=== PATIENT | male | born 2000 | race Two or more races ===

== ENCOUNTER 2018-09-15 23:31 | Outpatient (CLI) | payer OTHER | END 2018-09-15 23:32 | disposition EMS.NT | LOC: EMS 23:31 | PROVIDERS: ATTEND Surgery | DX: R42 Dizziness and giddiness (principal); R11.0 Nausea ==

== ENCOUNTER 2018-12-26 19:59 | Emergency (ER) | payer OTHER ==
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
[2018-12-26] MEDS ORDERED: CYCLOBENZAPRINE 10 MG TABLET PO STA (21:55)
[2018-12-26] MEDS ORDERED: ACETAMINOPHEN 325 MG TABLET PO STA (21:55)
[2018-12-26] MEDS ORDERED: IBUPROFEN 600 MG TABLET PO STA (21:55)
[2018-12-26 22:21] VITALS: BP 121/69
== END 2018-12-26 22:21 | disposition home or self-care (01) ==
LOC: ED 19:59
DX: M54.5 Low back pain (principal); M54.6 Pain in thoracic spine
CPT/HCPCS: 99284; A9270

== ENCOUNTER 2019-06-20 08:53 | Outpatient (CLI) | payer OTHER ==
[2019-06-20] MEDS ORDERED: GADOBUTROL 15 MMOL/15 ML VIAL ONE (09:39)
== END 2019-06-20 08:54 | disposition home or self-care (01) ==
LOC: DI 08:53
PROVIDERS: ATTEND Orthopaedic Surgery
DX: Z53.9 Procedure and treatment not carried out, unspecified reason (principal)

== ENCOUNTER 2020-10-25 08:14 | Outpatient (CLI) | payer OTHER ==
[2020-10-25 09:09] VITALS: BP 117/82
--- NOTE | 2020-10-25 09:09 | SLEEP CARE CONSULTATION ---
Information from patient questionnaire entered by Stephany Campoverde. I have reviewed and concur with the information entered by Stephany Campoverde. This document represents the service I personally performed and the decisions made by me, Arleth Piper ARNP. History of Present Illness Service Date and Time: 10/25/2020 0814 Reason for Visit: New patient Chief Complaint: reports: Unrefreshed sleep, Snoring, Excessive daytime sleepiness, Observed pauses in breathing, Fatigue, Other (gasping in sleep) Date of Onset: 2 years plus Usual bedtime: 10:30 pm Time it takes to fall asleep: 30-40 minutes Snores at night: Yes Observed to quit breathing while asleep: Yes Sleeps alone due to snoring: No Number of times waking at night: 0 Reasons for waking at night: reports: Choking (with acid taste in throat), Bathroom, Other (unknown reasons). denies: Gasping for air Toss, Turn, or Twitch while sleeping: Yes Recalls having dreams: Yes Usually gets out of bed at: 5:30 - 6:30 am Feels refreshed in the morning: No Morning headache: Yes (resolve after caffeine intake) Sleepy or fatigued during the day: Yes Ever fallen asleep while driving: No (does have drowsy driving at night) Takes day naps: No Dreams during day naps: Yes Prior sleep studies: No Additional HPI information: I had the pleasure of seeing MARC COREY today regarding the possibility of him having a sleep disorder. His current complaints are excessive daytime sleepiness, fatigue, observed pauses in breathing, snoring and unrefreshed sleep. He has a history of migraines. He has them 2-3 times a month and they can last on average 1-5 days. His PCP referred him for evaluation due to the headaches and because he snores loudly. He is very tired in the first half of day and his has told him he snores and has pauses in breathing during sleep. She has seen him gasping for air too. He does not wake up feeling rested. He will wake up for no apparent reason and has woke up choking with acid taste in throat. He feels he gets his best sleep between 4-6 AM. He avoids taking naps but wishes he could. His parents both snore and he states his father should be evaluated because he stops breathing when sleeping. 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 Patient is and lives in [place]. Have you smoked in the past 12 months: No Cigarettes per day (20/pack): 0 (vape) Years of smokin Smoking Pack Years: 0 Alcohol use: Yes Alcohol amount and frequency: 1-3 drinks 2-3 times a month Caffeine use: Yes Caffeine amount and frequency: 200 - 300 mg daily Family History Family history of sleep disordered breathing: Yes Family Hx Sleep Apnea: Mother: Snoring, Father: Snoring, Sleep apnea - Untreated Allergies and Home Medications Drug allergies reviewed: Yes (NKDA) Home medication list reviewed: Yes Allergy and home medication list: Methotrexate Sulfasalazine Cimetidine Humira, every other week Review of Systems Weight gain over past 5 years: 150 Cardiovascular: reports: leg or foot swelling Gastrointestinal: reports: heartburn, difficulty swallowing Neurological: reports: headaches Psychiatric: reports: Attention Deficit Hyperactivity, anxiety, depression Ear/Nose/Throat: reports: nasal congestion, nose bleeds, wisdom teeth removed. denies: injury to nose, tonsillectomy Endocrine: reports: sluggishness, too hot or cold, increased appetite. denies: thyroid disease Musculoskeletal: reports: joint pain, neck pain, back pain, joint swelling, muscle pain or cramping, mobility problems Immunologic: reports: sneezing, rash, itching, allergies to food or environment (seasonal allergies) Physical Exam Blood Pressure: 117/82 Cuff size: wrist Heart Rate: 83 O2 Saturation: 98 Height: 5 ft 6 in Weight: 242 lb Body Mass Index: 39.0 BMI Classification: Obese Neck circumference: 16.75 (inches) Nostrils: patent to airflow Mouth and throat: narrow oropharynx Soft palate: long Hard palate: normal Uvula: normal Uvula visualization: 50% Mallampati Class II Tongue: normal in size Tonsils: 2+ Heart: regular rate and rhythm Lungs: clear bilaterally Impression and Plan 1. Suspected Obstructive Sleep Apnea-Hypopnea Syndrome, as suggested by a history of loud and irregular snoring, observed cessation of breath while a sleep, gasping or choking in sleep, morning headache, unrefreshed sleep, cognitive impairment, and excessive daytime sleepiness. Narrow oropharynx and obesity are common predisposing factors for obstructive sleep apnea-hypopnea syndrome. I recommend proceeding to polysomnography to confirm the diagnosis and to assess severity. If the patient has significant sleep disordered breathing, a manual CPAP titration study will also be performed to find the optimal treatment pressure. I informed the patient of what the sleep studies involve and after some discussion, obtained agreement to proceed. The pathophysiology of obstructive sleep apnea-hypopnea syndrome was discussed with the patient and health risks of cardiovascular and cerebrovascular disease if not treated. AAS brochure for obstructive sleep apnea-hypopnea syndrome given and reviewed. Risks of drowsy driving discussed in detail and patient advised to avoid long distance driving and to pick pulling machine operator at the first sign of drowsiness. Patient agreed to plan. * Schedule polysomnography +- manual CPAP titration study and return in 1-2 weeks after the study to discuss result and initiate therapy. * Avoid long distance driving or driving when feeling sleepy. * Avoid alcohol, sedative and muscle relaxant around bedtime. * Attempt to lose weight. * Review instructions provided by trained office staff on how to prepare for the sleep study. * Return for follow-up after sleep study completed. Counseling Topics: Weight loss health impact Visit Type: In Office Time Spent with Patient (minutes): 30 Provider Statement: I spent 100% of the Face to Face Visit with the patient with greater than 50% spent counseling the patient and coordination of care.
== END 2020-10-25 08:15 | disposition home or self-care (01) ==
LOC: SC 08:14
PROVIDERS: ATTEND Nurse Practitioner Family
DX: G47.10 Hypersomnia, unspecified (principal); R06.83 Snoring; G47.8 Other sleep disorders; R51.9 Headache, unspecified; R41.89 Other symptoms and signs involving cognitive functions and awareness; R06.81 Apnea, not elsewhere classified; E66.9 Obesity, unspecified; Z68.39 Body mass index [BMI] 39.0-39.9, adult
CPT/HCPCS: 99203; 99212

== ENCOUNTER 2020-11-15 10:01 | Outpatient (CLI) | payer OTHER | END 2020-11-15 10:02 | disposition home or self-care (01) | LOC: SC 10:01 | PROVIDERS: ATTEND Nurse Practitioner Family | DX: R06.83 Snoring (principal); R06.81 Apnea, not elsewhere classified; G47.10 Hypersomnia, unspecified; R51.9 Headache, unspecified; R41.89 Other symptoms and signs involving cognitive functions and awareness; G47.8 Other sleep disorders; E66.9 Obesity, unspecified; Z68.39 Body mass index [BMI] 39.0-39.9, adult | CPT/HCPCS: 95806 ==

== ENCOUNTER 2020-11-29 09:57 | Outpatient (CLI) | payer OTHER ==
--- NOTE | 2020-11-29 10:30 | SLEEP CARE CONSULTATION ---
Information from patient questionnaire entered by Alida Kelley. I have reviewed and concur with the information entered by Alida Kelley. This document represents the service I personally performed and the decisions made by , Arleth Piper ARNP. History of Present Illness Service Date and Time: 11/29/2020 0957 Initial [place] Sleepiness Scale score: 8 (in 2020) Current [place] Sleepiness Scale score: 10 Additional HPI information: MARC COREY returns for follow up and results of the recently performed home sleep study. The patient was informed of the following findings: The HST was inconclusive due to extensive airflow signal and should be repeated or have an in lab PSG done. I discussed the findings with the patient and he agreed that the study should be repeated. Sleep Study - Results Type of Sleep Study: Home sleep study Prior sleep studies: Yes Year and Where: 10/2020 [facility] Polysomnography/Home Sleep Study results: Physician Impression: The quality of the study is poor due to extensive loss of airflow signal.. The length of the study is adequate (> 240 minutes). Please also see the tabulated and graphic data. 1. No significant sleep disordered breathing, with an AHI of 2.6/hr and fernando SaO2 of 87%. During the study, the patient had 1 apneas (1 obstructive, 0 central, 0 mixed) and 6 hypopneas. The longest episode lasted 29.5 seconds. The few respiratory events occurred more frequently during supine sleep (supine AHI was 3.3 and non-supine, 1.64). 2. Hypoxemia (ICD-10 R09.02), mild, with the lowest oxygen saturation of 87 % and 0.7 minutes with SaO2 under 90%. Baseline oxygen saturation was normal (Average oxygen saturation was 94%). Recommendation: Due to the very limited data available, this home sleep apnea test (HSAT) is considered inconclusive and should be repeated. An in-laboratory polysomnography is indicated if the home sleep apnea test cannot be properly performed. Allergies and Home Medications Home medication list reviewed: Yes Review of Systems Review of systems same as previous: Yes (no changes) Physical Exam Heart Rate: 85 O2 Saturation: 98 Height: 5 ft 6 in Weight: 243 lb Body Mass Index: 39.2 BMI Classification: Obese Impression and Plan 1. Suspected Obstructive Sleep Apnea-Hypopnea Syndrome, as suggested by a history of loud and irregular snoring, observed cessation of breath while asleep, gasping or choking in sleep, morning headache, unrefreshed sleep, and excessive daytime sleepiness. Patient recent HST was inconclusive due to significant airflow signal loss during the study. Patient woke up without the nasal cannula on his face without knowing how long it had been off. A recommendation was made to repeat the study or have an in lab sleep study completed. I recommend proceeding to polysomnography to confirm the diagnosis and to assess severity. If the patient has significant sleep disordered breathing, a manual CPAP titration study will also be performed to find the optimal treatment pressure. I informed the patient of what the sleep studies involve and after some discussion, obtained agreement to proceed. The pathophysiology of obstructive sleep apnea-hypopnea syndrome was discussed with the patient and health risks of cardiovascular and cerebrovascular disease if not treated. Risks of drowsy driving discussed in detail and patient advised to avoid long distance driving and to cloth covered helmet puller at the first sign of drowsiness. Patient agreed to plan. * Schedule polysomnography +- manual CPAP titration study and return in 1-2 weeks after the study to discuss result and initiate therapy. * Avoid long distance driving or driving when feeling sleepy. * Avoid alcohol, sedative and muscle relaxant around bedtime. * Attempt to lose weight. * Review instructions provided by trained office staff on how to prepare for the sleep study. * Return for follow-up after sleep study completed. Counseling Topics: Weight loss health impact Visit Type: In Office Time Spent with Patient (minutes): 10 Provider Statement: I spent 100% of the Face to Face Visit with the patient with greater than 50% spent counseling the patient and coordination of care.
== END 2020-11-29 09:58 | disposition home or self-care (01) ==
LOC: SC 09:57
PROVIDERS: ATTEND Nurse Practitioner Family
DX: R06.83 Snoring (principal); R06.81 Apnea, not elsewhere classified; R51.9 Headache, unspecified; G47.10 Hypersomnia, unspecified; G47.8 Other sleep disorders; R41.89 Other symptoms and signs involving cognitive functions and awareness; E66.9 Obesity, unspecified; Z68.39 Body mass index [BMI] 39.0-39.9, adult
CPT/HCPCS: 99212

== ENCOUNTER 2021-07-27 19:55 | Emergency (ER) | payer OTHER ==
[2021-07-27 20:02] VITALS: BP 138/73
--- NOTE | 2021-07-27 20:15 | ED Physician Documentation ---
History of Present Illness - Stated complaint Stated Complaint: right thigh swelling & hot - Chief complaint Chief Complaint: Allergic Rx - Additonal information Additional information: 21-year-old male presents emergency department for evaluation of redness and erythema on his right anterior thigh. He injected Humira here last night. He states that in the past he has had small localized reactions but never 1 as large as this. He denies any fevers chills nausea or vomiting. Review of Systems Constitutional: reports: Reviewed and negative Nose: reports: Reviewed and negative Throat: reports: Reviewed and negative Respiratory: reports: Reviewed and negative GI: reports: Reviewed and negative : reports: Reviewed and negative Skin: reports: Lesions Musculoskeletal: reports: Reviewed and negative PD PAST MEDICAL HISTORY - Past Medical History Cardiovascular: None Respiratory: None Neuro: None Endocrine/Autoimmune: None GI: None : None HEENT: None Psych: Depression, Anxiety Musculoskeletal: Chronic back pain Derm: None - Past Surgical History Past Surgical History: No - Present Medications Home Medications: Ambulatory Orders Medication Instructions Recorded Confirmed Acetaminophen 650 mg PO Q6HR #30 tablet 12/26/18 Cyclobenzaprine [Flexeril] 10 mg PO TID PRN #20 tablet 12/26/18 Ibuprofen 600 mg PO Q6H PRN #30 tablet 12/26/18 Lidocaine Patch 5% [Lidoderm Patch] 1 each TOP DAILY PRN #7 patch 12/26/18 cephALEXin [Keflex] 500 mg PO Q6H #28 cap 07/27/21 - Allergies Allergies/Adverse Reactions: Allergies Allergy/AdvReac Type Severity Reaction Status Date / Time No Known Drug Allergies Allergy Verified 07/27/21 19:59 - Social History Does the pt smoke?: No Smoking Status: Never smoker Does the pt drink ETOH?: Yes Does the pt have substance abuse?: No - Immunizations Immunizations are current?: Yes - POLST Patient has POLST: No PD ED PE EXPANDED - General General: Alert, No acute distress, Well developed/nourished - Cardiac Cardiac: Regular Rate, Radial strong equal, Pedal strong equal, Cap refill < 2 sec. No: Murmur Present - Respiratory Respiratory: Clear to ausultation [place]. No: Distress, Labored - Extremities Extremities: Other (5 x 5 area of erythema right anterior thigh. Mild induration. No fluctuance. Limited bedside ultrasound reveals no fluid collection or cobblestoning of tissues) Results - Vitals Vitals: Vital Signs - 24 hr 07/27/21 19:59 Temperature 36.5 C Heart Rate 90 Respiratory 16 Rate Blood Pressure 138/73 H O2 Saturation 99 Oxygen O2 Source Room air PD MEDICAL DECISION MAKING - ED course Complexity details: reviewed results, re-evaluated patient, considered differential, d/w patient ED course: 21-year-old male presents emergency department for evaluation of erythema and induration to the right anterior thigh at the site where he injected Humira yesterday. He has had localized injection reactions in the past but none his largest this which measures approximately 5 x 5 cm. I did do a limited bedside ultrasound that revealed no fluid collection or cobblestoning and tissues as I would expect in the setting of cellulitis or absc ess formation. I suspect he is having a localized immune reaction. He is advised cool compress and Benadryl. If symptoms not markedly better in 72 hours or significantly worsening before then he will fill the prescription for the cephalexin and take as directed. Departure - Departure Disposition: 01 Home, Self Care Clinical Impression: Skin inflammation Condition: Stable Record reviewed to determine appropriate education?: Yes Instructions: ED Allergic Reaction Local Other Prescriptions: cephALEXin [Keflex] 500 mg PO Q6H #28 cap Comments: Colby quiñones are seen today in the emergency department for redness to the right anterior thigh at the site where you injected Humira yesterday. As we discussed at the bedside I suspect that this is a localized tissue inflammation as you have had smaller episodes in the past when you have previously injected Humira. I do recommend that you continue the Benadryl. A cool compress may also be helpful. I am less suspicious for a bacterial skin infection or cellulitis at this time. You have no fevers, severe pain and the limited ultrasound at the bedside did not show cobblestoning or any fluid collection. If you find that your symptoms or not markedly better after 72 hours, you develop any red streaking, have fevers or chills then please fill the prescription for the cephalexin to begin taking as directed
== END 2021-07-27 20:30 | disposition home or self-care (01) ==
LOC: ED 19:55
DX: L98.8 Other specified disorders of the skin and subcutaneous tissue (principal)
CPT/HCPCS: 99282